=== PATIENT | male | born 1955 | race Caucasian/White ===

== ENCOUNTER 2021-04-21 15:54 | Emergency (ER) | payer OTHER ==
[~2021-04-21 15:54] MED LIST: ASPIR 8181 MG PO; FLEXERIL10 MG PO; LEVOTHYROXINE50 MCG PO; LISINOPRIL 5 MG5 MG PO; MELOXICAM15 MG PO; NOVOLOG VI100 UNIT/1 SC; OMEGA-3 ACID ETH1 GM PO; OMEPRAZOLE40 MG PO; PAROXETINE HCL40 MG PO; PRAVASTATIN SOD10 M1 PO; TRULICITY1.5 MG/0.5 SC; V-GO 401 EACH SC
[2021-04-21 18:38] LABS: BASOPHIL 0.3 % (0-2); EOSINOPHIL 0.8 % (0-7); HCT 47.8 % (42.0-52.0); HGB 16.1 g/dl (13.2-18.0); LYMPHOCYTE 34.5 % (15-48); MCH 29.2 pg (25.0-31.0); MCHC 33.7 g/dL (32.0-36.0); MCV 86.8 fL (78.0-100.0); MONOCYTE 8.4 % (0-12); MPV 9.3 fL (6.0-9.5); NEUTROPHIL 55.5 % (41-80); NRBC 0; PLT 193 K/uL (150-400); RBC 5.51 M/uL (4.70-6.00); RDW 12.8 % (11.5-14.0); WBC 5.9 K/uL (4.0-10.5)
[2021-04-21 18:59] LABS: BUN/CREAT RATIO (CALC) 24.6 RATIO; CREATININE 0.69 mg/dL (0.67-1.17); POTASSIUM 4.3 mmol/L (3.5-5.1)
== END 2021-04-21 19:39 | disposition home or self-care (01) ==
LOC: FER 15:54
PROVIDERS: Nurse Practitioner Family
DX: U07.1 COVID-19 (principal); E11.9 Type 2 diabetes mellitus without complications; K21.9 Gastro-esophageal reflux disease without esophagitis; Z88.5 Allergy status to narcotic agent; Z79.84 Long term (current) use of oral hypoglycemic drugs; Z79.4 Long term (current) use of insulin; Z79.82 Long term (current) use of aspirin; Z86.73 Personal history of transient ischemic attack (TIA), and cerebral infarction without residual deficits; Z79.899 Other long term (current) drug therapy
CPT/HCPCS: 36415; 36600; 71045; 80048; 82803; 85025; 85379